=== PATIENT | female | born 2000 | race Caucasian/White ===

== ENCOUNTER → 2018-03-19 13:43 | Outpatient (CLI) | payer OTHER, SELFPAY ==
--- NOTE | 2018-03-19 13:47 | US_ITS ---
STUDY: RENAL ULTRASOUND - COMPLETE REASON FOR EXAM: Female, 17 years old. UTI TECHNIQUE: Ultrasound evaluation of the kidneys was performed with real-time and static oneill-scale imaging. COMPARISON: None. FINDINGS: RIGHT KIDNEY: Normal location of the right kidney, which is normal in size. The right kidney measures 10.4 x 4.4 x 3.7 cm. There is a normal cortex of the right kidney. The renal cortex measures 1.3 cm. There is no right renal mass or cyst. There are no right renal calculi. There is no right hydronephrosis. DISTAL RIGHT URETER: There is non-visualization of the distal right ureter. There is no demonstrated right ureterovesical junction calculus. There is a visualized right ureteral jet. LEFT KIDNEY: Normal location of the left kidney, which is normal in size. The left kidney measures 11.3 x 4.5 x 4.6 cm. There is a normal cortex of the left kidney. The renal cortex measures 1.3 cm. There is no left renal mass or cyst. There are no left renal calculi. There is no left hydronephrosis. DISTAL LEFT URETER: There is non-visualization of the distal left ureter. There is no demonstrated left ureterovesical junction calculus. There is a visualized left ureteral jet. BLADDER: The distended urinary bladder has a volume of 67 ml. The empty urinary bladder has a volume of 0 ml. There is a normal wall thickness of the distended urinary bladder. There is no demonstrated mass within the urinary bladder. There are no demonstrated bladder calculi. US/Kidney and Bladder IMPRESSION: Normal ultrasound of the kidneys and urinary bladder. Electronically Signed: Sammy Christensen MD at 23:51 EST , Service support ,
== END ==
PROVIDERS: Family Provider Pediatrics; PCP Pediatrics; Referring Provider Urology; Visit Provider Urology
DX: N39.0 Urinary tract infection, site not specified (principal)
CPT/HCPCS: 76770

== ENCOUNTER 2023-10-18 06:14 | Inpatient (IN) | payer MEDICAID, SELFPAY ==
[2023-10-18] VITALS (48 sets, daily range): BP systolic 111–147; BP diastolic 65–90; PULSE 80–121; RESP 15–18; TEMP 36.5–37.1; O2SAT 88–100; BMI 31.4
[2023-10-18 05:59] LABS: ROM Internal Control Test YES-OK TO RESULT pt. (Internal QC)
[2023-10-18 06:00] LABS: ROM Patient Test POSITIVE (Negative); Record Kit Lot#, ROM+ K1866
[2023-10-18] MEDS: Lactated Ringers 1,000 ML 50 ML IV (06:10)
[2023-10-18 06:36] LABS: Absolute Lymphocyte Count 2.14 X10^3/uL (0.83-4.51); Absolute Neutrophil Count 9.7 X10^3/uL (2.0-7.7); Basophil# 0.02 X10^3/uL; Basophil% 0.2 % (0-1); Eosinophil# 0.08 X10^3/uL; Eosinophils% 0.6 % (0-5); Hematocrit 35.6 % (37-47); Lymphocyte # 2.14 X10^3/ul (0.83-4.51); Lymphocyte % 16.3 % (19-41); Mean Corp Hgb Conc 33.7 g/dL (32-36); Mean Corpuscular Hgb 31.1 pg (27.0-32.0); Mean Corpuscular Volume 92.2 fL (81-99); Mean Platelet Vol. 13.6 fl (6.2-12.0); Monocyte# 1.05 X10^3/uL; NRBC Flagged by Analyzer 0.2 % (0-5); Neutrophil # 9.73 X10^3/uL (2.7-7.7); Neutrophil % 74.1 % (47-70); Platelet Count 122 K/mm3 (150-450); RBC Distribution Width SD 43.3 fl (35.1-43.9); Red Blood Count 3.86 M/mm3 (4.2-5.4); White Blood Count 13.1 K/mm3 (4.4-11.0)
[2023-10-18] MEDS: Penicillin G Pot 5,000,000 UNITS in 0.9% Normal Saline (100mL MB+) 100 ML 150 UNITS IV (06:41)
[2023-10-18 07:09] LABS: ALB/GLOB Ratio 0.7 RATIO (0.9-2.4); AST(SGOT) 19 U/L (15-37); Alanine Aminotransfer ALT/SGPT 15 U/L (13-56); Albumin, Serum 2.7 g/dL (3.2-5.0); Alkaline Phosphatase 170 U/L (45-117); Anion Gap 8 (5-15); BUN 9 mg/dL (7-18); BUN/Creat Ratio 15.3 RATIO (10-20); Calcium,Total 9.1 mg/dL (8.5-10.1); Chloride 109 mmol/L (98-107); Creatinine, Serum 0.59 mg/dL (0.55-1.02); EST Glomerular Filtration Rate 132 mL/min (>60); Est Glom Filt Rate - Afr Amer 160 mL/min (>60); Estimated Creatinine Clearance 151.92 ml/min; Globulin 3.9 g/dL (2.2-4.2); Glucose 84 mg/dL (74-106); Potassium 3.9 mmol/L (3.5-5.1); Protein, Total 6.6 g/dL (6.4-8.2); Sodium Level 137 mmol/L (136-145)
--- NOTE | 2023-10-18 07:33 | PCM.HP.OB ---
HPI - General General Date of Admission: 10/18/23 Date of Service: 10/18/23 Chief Complaint: SROM HPI Narrative PATRICK SUE, is a 23 F who presents ROM around 3 am. Some contractions. No bleeding. GBS positive. Positive HSV. No recent outbreak. Has been taking Acyclovir. Maternal Data Information Final CROW: 10/30/23 Gestational age: 38+2 [facility] Medical History Asthma Genital herpes affecting Home Medications ?Medication ?Instructions ?Recorded ?Last Taken ?Type acyclovir 400 mg tablet 400 mg PO TID 10/18/23 10/17/23 20:00 History vit no.95-ferrous 1 tab PO DAILY 10/18/23 10/11/23 History fumarate 28 mg-folic acid 800 mcg tablet ( Multivitamins) Allergy/AdvReac Type Severity Reaction Status Date / Time No Known Allergies Allergy Verified 10/18/23 05:36 Surgical History History of surgery Social History Smoking Status: Never smoker History Elective abortions Hx Para 0 Spontaneous abortions Hx # Term Pregnancies Ectopic pregnancies Hx # Pregnancies Multiple births # of living children NST FHR Rate Baby A Baseline: 135 Variability:: Moderate Accelerations:: 15 x 15 Decelerations:: None NST Reactive:: Yes FHR Category:: Category I Uterine Activity:: q 4 ROS Constitutional Constitutional: Denies fatigue, fever(s) or malaise Eyes Eyes: Denies change in vision ENT HEENT: Denies dizziness or headache(s) Cardiovascular Cardiovascular: Denies chest pain, dyspnea or lightheadedness Respiratory/Chest Respiratory/Chest: Denies cough or dyspnea Gastrointestinal Gastrointestinal: Denies change in bowel habits Genitourinary Genitourinary: Denies burning urination or genital lesions Integumentary Integumentary: Denies rash Neurologic Neurologic: Denies confusion, dizziness, headache(s), numbness or weakness Vital Signs Vital Signs Vital Signs: 10/18/23 05:27 10/18/23 05:27 10/18/23 05:28 Temperature Temperature Source Pulse Rate 90 91 Respiratory Rate Blood Pressure 142/80 H BP Systolic 142 BP Diastolic 80 Pulse Ox 10/18/23 05:28 10/18/23 05:28 10/18/23 05:28 Temperature Temperature Source Temporal Pulse Rate Respiratory Rate 17 Blood Pressure BP Systolic BP Diastolic Pulse Ox 97 10/18/23 05:28 10/18/23 06:26 10/18/23 06:26 Temperature 97.9 F Temperature Source Pulse Rate 95 Respiratory Rate Blood Pressure 133/87 H BP Systolic 133 BP Diastolic 87 Pulse Ox 10/18/23 07:16 10/18/23 07:16 10/18/23 07:16 Temperature 97.9 F Temperature Source Pulse Rate 89 Respiratory Rate Blood Pressure 138/86 H BP Systolic 138 BP Diastolic 86 Pulse Ox Weight Weight: 83.007 kg Body Mass Index (BMI) 31.4 Physical Exam Const alert and no apparent distress General Appearance: cooperative HEENT normocephalic Resp normal respiratory effort GI soft to palpation GI Narrative: gravid, nontender, appropriate for gestational age Manual OB Exam: dilated 2, effaced 70 and station -3 Extremity no calf tenderness General Extremity: edema Skin no wounds Rashes: No rashes noted Psych activity/motor behavior normal Labs Labs Labs: Blood Type A NEGATIVE Antibody Screen Pending Hct 35.6 % (37-47) L Hgb 12.0 g/dL (12.0-15.0) Syphilis Total Ab Pending Assessment & Plan (1) PROM (premature rupture of membranes): QUALIFIERS: PROM onset of labor timing: onset of labor within 24 hours of rupture PROM gestational age: full term Qualified Code(s): O42.02 - Full-term premature rupture of membranes, onset of labor within 24 hours of rupture (2) 38 weeks gestation of : (3) Positive GBS test: PLAN: PCN treatment (4) HSV (herpes simplex virus) infection: PLAN: No recent outbreak. Acyclovir prophylaxis PLAN: Plan Augmentation if needed. PCN for GBS Epidural prn
[2023-10-18] MEDS: Lactated Ringers 1,000 ML 999 ML IV (09:25)
[2023-10-18 09:55] LABS: Syphilis Antibodies Non-reactive
[2023-10-18] MEDS: fentaNYL-bupivacaine (epidural) 100 ML BAG EPIDURAL ×2 (10:00→15:00)
[2023-10-18] MEDS: Penicillin G 3,000,000 Units 50 ML 100 UNITS IV (10:50)
[2023-10-18] MEDS: Oxytocin 15 Units/NS 250ml 15 UNITS/250 ML IV.SOLN 2 UNITS IV (11:19)
--- NOTE | 2023-10-18 16:47 | EX.PCM.OBRPT ---
Assessment & Plan (1) (spontaneous vaginal delivery): (2) Laceration, obstetrical, first degree: (3) Shoulder dystocia, delivered: Maternal Data Information CROW Calculator Estimated Delivery Date Method Current WG Current Estimate 10/30/23 Manual 38w 2d Vaginal Delivery Maternal Presentation Maternal Presentation: Spontaneous Rupture of Membranes Type of Induction: Pitocin (Augmented ) Operative Information Date of Procedure: 10/18/23 Pre-Operative Diagnosis: Term gestation, Spontaneous rupture of membranes Post-Operative Diagnosis: , Live male Surgery / Procedure Performed: Spontaneous Vaginal Delivery Type of Anesthesia: Epidural Drain: Palafox to straight drain Estimated Blood Loss: 400 Time of Delivery: 16:28 Findings Description of Procedure: Called to patient's room for delivery. With maternal effort, head delivered. Turtle sign immediately noted. Patient placed in Manny position and Supra pubic pressure given to left side without release of shoulder. Attempted to rotate anterior shoulder forward and then backward without success. Infant's posterior arm felt and in bent position. In between pushes, posterior arm able to be removed which then released anterior shoulder. Total time of shoulder dystocia was 1 min 9 seconds. Infant initially with poor tone and color. Cord immediately clamped and cut and baby handed off to facilities operations technician and nursery nurse. Pitocin IV started for active management of the third stage of labor. Placenta delivered spontaneously and intact. Cord blood collected and sent from 3 vessel cord. First degree laceration repaired in usual fashion using Vicryl 3-0 rapid. Hemostasis obtained. Fundus firm below U. Placed straight catheter to empty bladder for approximately 150 cc clear-yellow urine. transitioning well and placed back on patient skin to skin within minutes. Discussed shoulder dystocia with patient and maneuvers that were done to release his shoulder. currently has symmetric arm movements with intact Vero. Patient and bonding well at this time. Dr. Wild notified of above and delivery. Presentation: NATALIA Amniotic Membrane Rupture Type: Spontaneous Time of Membrane Rupture: 0300 Amniotic Fluid Description: Clear Placental Delivery Description: Spontaneous Placenta Disposition: [facility] Cord Vessel Description: 3 Vessels Cord Entanglement: None Nuchal Cord Compression: Without compression A Gender: Male (1 minute): 5 (5 minute): 8 Delayed Cord Clamping: No Post Vaginal Delivery Medications Given After Delivery: IV Pitocin Episiotomy Description: None Laceration: 1st degree Complication Complications: None
[2023-10-18] MEDS: Oxytocin 15 Units/NS 250ml 15 UNITS/250 ML IV.SOLN 83 UNITS IV (17:00)
[2023-10-18] MEDS: Rho(D) Immune Globulin 300 MCG (1500 Unit) Syringe IV (21:36)
[2023-10-18] MEDS: 0.9% Saline Lock 10 ML Syringe IV (21:36)
[2023-10-19] VITALS: BP 124/79; PULSE 100; RESP 16; TEMP 36.9; O2SAT 98
[2023-10-19 04:00] VITALS: BP 125/79; PULSE 92; RESP 16; TEMP 36.8; O2SAT 99
[2023-10-19 08:30] VITALS: BP 135/94; PULSE 104; RESP 18; TEMP 36.3
--- NOTE | 2023-10-19 08:35 | PCM.PROGNOTE ---
Subjective Subjective patient seen at bedside, doing well. Patient reports good pain control. lochia mild. bottle feeding. Objective Data Objective Data Vital Signs: Vital Signs Temp Pulse Resp BP Pulse Ox O2 Del Method 98.2 F 92 16 125/79 H 99 Room Air 10/19/23 04:00 10/19/23 04:00 10/19/23 04:00 10/19/23 04:00 10/19/23 04:00 10/19/23 04:00 Oxygen Delivery Method Room Air Weight: 83.007 kg Body Mass Index (BMI) 31.4 Intake & Output: Intake and Output for Last 24 Hours 10/17/23 10/18/23 10/19/23 23:59 23:59 23:59 Intake Total 2655.00 / 2655.00 Output Total 1250 / 1250 Balance 1405.00 / 1405.00 Lab / Micro Data 10/18/23 06:10 10/18/23 06:10 Labs: Laboratory Results - last 24 hr 10/18/23 06:10: Syphilis Total Ab Non-reactive, Blood Type A NEGATIVE, Antibody Screen POSITIVE, Antibody Identification ANTI-D 10/18/23 19:50: Screen NEGATIVE, Baby's Blood Type A POSITIVE, Baby's JENNY NEGATIVE Physical Exam Narrative abd: fundus firm Const alert and oriented x3 General Appearance: cooperative HEENT normocephalic Neck General: normal visual inspection GI soft to palpation and non-distended GI Narrative: Fundus firm Extremity normal to inspection and no calf tenderness Skin no rashes or lesions noted Neuro oriented x3 and CN's II-XII intact bilaterally Psych mental status grossly normal Assessment & Plan Assessment/Plan (1) Laceration, obstetrical, first degree: (2) (spontaneous vaginal delivery): (3) HSV (herpes simplex virus) infection: PLAN: Plan PPD# 1 , Doing well Routine care pain mgmt ambulation dc home today if cleared for dc home time spent with pateint face to face on day of discharge was <30min
--- NOTE | 2023-10-19 08:36 | DCINST_ITS ---
Discharge Instructions Diet Discharge Diet: No restrictions Activity May resume sexual activity in: 6-8 weeks Dressing / Incision Call your doctor if you observe: Fever of 101 or Higher, Inability to urinate, Using more than 1 pad per hour and Uncontrolled pain Follow Up Care When: 1-2 weeks post and again at 6 weeks post . [phone] Test Results: Test results from this visit will be discussed in further detail at your follow- up appointment, if applicable. Discharge Plan Admission Admit Date/Time: 10/18/23 06:14 Attending Provider: Mariely Vee Primary Care Provider: Vidal Parra Discharge Orders/Prescriptions Prescriptions: New acetaminophen 500 mg Tablet 1,000 mg PO Q6H PRN PRN (Reason: Pain 1-10 Or Fever) Qty: 0 0RF naproxen 500 mg Tablet 500 mg PO Q8H PRN PRN (Reason: Pain Score 1-10) Qty: 0 0RF Continued PNV cmb#95-ferrous fumarate-FA [ Multivitamins] 28 mg iron- 800 mcg tablet 1 tab PO DAILY acyclovir 400 mg tablet 400 mg PO TID Referrals / Follow Up: Vidal Parra MD [Primary Care Provider] - Disposition Disposition (needs filled in before D/C Order can be placed): Home, Self Care
[2023-10-19] MEDS: Benzocaine/Lanolin/Aloe Vera 85 GM Spray 1 SPRAY TOPICAL (09:38)
[2023-10-19] MEDS: Naproxen 500 MG Tablet PO (09:38)
[2023-10-19 12:30] VITALS: BP 130/95; PULSE 94; RESP 16; TEMP 36.5
[2023-10-19 16:30] VITALS: BP 118/76; PULSE 95; RESP 16; TEMP 36.8
== END 2023-10-19 18:11 | disposition home or self-care (01) | DRG 560 ==
LOC: WP 06:18
PROVIDERS: Admitting Provider Obstetrics & Gynecology; PCP Pediatrics; Visit Provider Advanced Practice Midwife
DX: O42.02 Full-term premature rupture of membranes, onset of labor within 24 hours of rupture (principal); Z37.0 Single live birth; O66.0 Obstructed labor due to shoulder dystocia; O69.81X0 Labor and delivery complicated by cord around neck, without compression, not applicable or unspecified; O70.0 First degree perineal laceration during delivery; O99.824 Streptococcus B carrier state complicating childbirth; Z3A.38 38 weeks gestation of pregnancy; Z86.19 Personal history of other infectious and parasitic diseases
CPT/HCPCS: 59025; 59050; 80053; 84112; 85025; 85461; 86780; 86850; 86870; 86900; 86901; 90384; 99221; J7120; A4216; G0378; J2790; J2791